=== PATIENT | male | born 1955 | race Caucasian/White ===

== ENCOUNTER 2021-12-11 09:00 | Emergency (ER) | payer SELFPAY ==
[~2021-12-11] VITALS: Ht 172.7 cm; Wt 74.8 kg
[2021-12-12] MEDS ORDERED: PREDNISONE50 MG PO (09:32)
[2021-12-12] MEDS ORDERED: CYCLOBENZAPRINE10 MG PO (09:32)
== END 2021-12-11 10:42 | disposition home or self-care (01) ==
LOC: ED 09:00
DX: S39.92XA Unspecified injury of lower back, initial encounter (principal); X50.0XXA Overexertion from strenuous movement or load, initial encounter; Y93.89 Activity, other specified; Y92.89 Other specified places as the place of occurrence of the external cause; Y99.8 Other external cause status

== ENCOUNTER 2021-12-12 08:01 | Emergency (ER) | payer OTHER ==
[~2021-12-12] VITALS: Ht 172.7 cm; Wt 74.8 kg
[2021-12-12] MEDS ORDERED: PREDNISONE50 MG PO (09:32)
[2021-12-12] MEDS ORDERED: CYCLOBENZAPRINE10 MG PO (09:32)
== END 2021-12-12 09:48 | disposition home or self-care (01) ==
LOC: ED 08:01
DX: S39.012D Strain of muscle, fascia and tendon of lower back, subsequent encounter (principal); Y92.89 Other specified places as the place of occurrence of the external cause